=== PATIENT | female | born 1960 | race Caucasian/White ===

== ENCOUNTER 2017-08-10 08:11 | Day surgery (SDC) | payer BC ==
[2017-08-07 16:19] VITALS: BMI 29.7
--- NOTE | 2017-08-10 07:56 | HP ---
[facility] - Chief Complaint Chief Complaint: left shoulder pain - Past Medical History Allergies/Adverse Reactions: Allergies Allergy/AdvReac Type Severity Reaction Status Date / Time Penicillins Allergy Intermediate Rash Verified 08/07/17 16:07 grapefruit AdvReac Intermediate Verified 08/07/17 16:07 ...LMP: 06/03/17 - Current Medications Current Medications: Home Medications Medication Instructions Recorded Ambrotose 2 tab PO BID 04/27/16 Ascorbate Calcium/Bioflavonoid 1 each PO BID 04/27/16 [Meri-C 1,000 mg Tablet] B Right 1 tab PO DAILY 04/27/16 Bone Up 1 tab PO BID 04/27/16 Cholecalciferol (Vitamin D3) 5,000 unit PO DAILY 04/27/16 [Vitamin D3] Gluc Rod/MSM/Magnesium/Vit C 1 each PO BID 04/27/16 [Glucosamine Complex-MSM Cap] Ligaplex 2 tab PO BID 04/27/16 Livaplex 1 tab PO DAILY 04/27/16 Wheat Germ Oil 1 each PO BID 04/27/16 Wild Greens 1 pkt PO DAILY 04/27/16 Adrenal Force 1 each PO BID 08/07/17 Ambrotose 4 each PO BID 08/07/17 Satellite Physical Exam - Physical Examination General Appearance: Well Nourished, Well Developed, Alert & Oriented x3 ENT: Clear Lung: Normal air movement Heart: Regular rate & rhythm Extremities: Other (left shoulder- + ttp, decr rom, + empty can, + neer, + castillo, nvi MRI + rct) Neurological: Intact, Alert, Oriented Satellite Impression/Plan - Impression/Plan Impression: left shoulder rct Operative Procedure: left shoulder arthroscopy with RCR, SAD Date to be Performed: 08/10/17
[2017-08-10] MEDS ORDERED: MIDAZOLAM HCL 2 MG/2 ML SINGLE DOSE VIAL ONE (08:51)
[2017-08-10] MEDS ORDERED: DEXAMETHASONE SOD PHOSPHATE/PF 10 MG/ML SDV ONE (08:51)
[2017-08-10] MEDS ORDERED: ROPIVACAINE HCL 0.5% 30ML VIAL ONE (08:51)
[2017-08-10] MEDS ORDERED: PROPOFOL 20 ML ONE (10:41)
[2017-08-10] MEDS ORDERED: ONDANSETRON 4 MG/2 ML VIAL ONE ×2 (10:54→12:17)
[2017-08-10] MEDS ORDERED: DEXAMETHASONE SOD PHOSPHATE 4 MG/1 ML VIAL ONE (10:54)
[2017-08-10] MEDS ORDERED: ONDANSETRON 4 MG/2 ML VIAL IVPUSH PRN (11:19)
[2017-08-10] MEDS ORDERED: oxyCODONE HCL 5 MG TABLET PO PRN (11:19)
[2017-08-10] MEDS ORDERED: LACTATED RINGERS SOLUTION 1,000 ML IV SCH (11:30)
--- NOTE | 2017-08-10 11:55 | OP ---
Operative Note - Note: Operative Date: 08/10/17 (sai) Pre-Operative Diagnosis: left shoulder rct Operation: left shoulder arthroscopy with RCR, SAD Implants: 2 swivelocks Post-Operative Diagnosis: Same as Pre-op Surgeon: Truong Stiles Grubber: Dc Lorenzo Anesthesiologist/PATTERN LAYOUT WORKER: Hammad Nguyễn Anesthesia: General, Local Specimens Removed: shavings Estimated Blood Loss (mls): 5 Operative Report Dictated: Yes
[2017-08-10] MEDS ORDERED: PROMETHAZINE HCL 25 MG/1 ML VIAL ONE (13:02)
[2017-08-10] MEDS ORDERED: PROMETHAZINE HCL 25 MG/1 ML VIAL IVPUSH ONE (13:05)
[2017-08-10 13:32] VITALS: TEMP 97.3
[2017-08-10 15:36] VITALS: BP 108/64; PULSE 64
--- NOTE | 2017-08-11 05:55 | OP ---
DATE OF OPERATION: 08/10/2017 PREOPERATIVE DIAGNOSIS: Left rotator cuff tear. POSTOPERATIVE DIAGNOSIS: Left rotator cuff tear. PROCEDURE: Arthroscopy, left shoulder with subacromial debridement of bone and soft tissue and arthroscopic rotator cuff repair. SURGICAL ATTENDING: Truong Stiles MD SKIP TRACER: MERNA Florentino ANESTHESIA: Regional and LMA. CLOSURE: SutureTape and SwiveLoc anchors for rotator cuff and 3-0 nylon for the skin. ESTIMATED BLOOD LOSS: Negligible. COMPLICATIONS: None. CONDITION: Recovery room in stable condition. DESCRIPTION OF OPERATIVE PROCEDURE: The patient was taken to the operating room on August 10, 2017. Regional and general anesthesia was administered by the anesthesiologist. IV Kefzol was administered prophylactically prior to the case. The patient was placed in a beach chair position with all prominences well padded. The left shoulder area was prepped and draped in the usual sterile fashion. First, a diagnostic arthroscopy of the glenohumeral joint was performed. A posterior portal was made 2 fingerbreadths below the acromion first with a 15 blade followed by blunt trocar. Circumferential exam revealed the following: Intact glenoid and humeral head articular cartilage, intact labrum circumferentially. No loose bodies in the axillary pouch. Intact biceps and biceps anchor. Intact subscapularis to its insertion. The supraspinatus was found to be torn. The fluid was drained from the shoulder. Trocar was removed. Posterior trocar was redirected in the subacromial space. Successively, a lateral portal was made with a 15 blade blunt trocar. Bursectomy was performed a huge amount of inflamed bursal tissue, which was debrided. This was teased off the rotator cuff. The undersurface of the acromion was burred raising the roof of the humeral head to the appropriate level. Coracoacromial ligament was identified, detached anteriorly, and was further debrided. This was done from laterally all the way to the AC joint. Looking inferiorly, the fibrous tissue encased in the humeral head was debrided. The rotator cuff was found to have a high-grade partial-thickness tear. SutureTape from [employer] was placed using a Scorpion needle through the leading edge of the rotator cuff. This was placed in a horizontal mattress fashion. These sutures were fixated to the greater tuberosity using SwiveLoc anchors achieving excellent fixation of the rotator cuff. Probing of the rotator cuff revealed good stability of the rotator cuff. The shoulder was irrigated. The portals were closed using 3-0 nylon horizontal mattress suture. Sterile pressure dressing followed by a shoulder immobilizer was applied. The patient was awakened from anesthesia and transferred to the recovery room in stable condition. No complications. Estimated blood loss negligible. Han CROCKETT/[id number]
--- NOTE | 2017-08-14 19:03 | PATH ---
Surgical Pathology Report Patient Name: DENISE HALL [facility]. Rec. #: [id number] /Age/Gender: 1960 (Age: 56) / F Account: [id number] Location: [facility] Taken: 08/10/2017 Received: 08/10/2017 Reported: 08/14/2017 Physicians: Truong Stiles M.D. Specimen(s) Received LEFT SHOULDER SHAVINGS Clinical History Left rotator cuff tear Final Diagnosis SHOULDER, LEFT, ARTHROSCOPIC SHAVINGS: FIBROSYNOVIAL TISSUE, CARTILAGE, SCANT BONE AND SKELETAL MUSCLE. Electronically Signed María Carvalho M.D. Gross Description Received in formalin, labeled "left shoulder shavings," is a 5.5 x 4.7 x 0.5 cm. aggregate of white-yellow soft tissue fragments. A goodwill representative portion is submitted in one cassette. 08/13/201708/13/2017
== END 2017-08-10 15:00 | disposition home or self-care (01) ==
LOC: FASU 08:11
PROVIDERS: ATTEND Orthopaedic Surgery
PROC: 0RNK4ZZ Release Left Shoulder Joint, Percutaneous Endoscopic Approach (ICD-10-PCS; principal; 2017-08-10 10:00)
PROC: 0LQ24ZZ Repair Left Shoulder Tendon, Percutaneous Endoscopic Approach (ICD-10-PCS; 2017-08-10 10:00)
DX: M75.102 Unspecified rotator cuff tear or rupture of left shoulder, not specified as traumatic (principal)
CPT/HCPCS: 84703; 88304-TC; 94760